=== PATIENT | male | born 1945 | race Caucasian/White ===

== ENCOUNTER 2020-12-28 10:01 | Emergency (ER) | payer MEDICARE, SELFPAY ==
--- NOTE | 2020-12-28 10:07 | ED.EYEPROB ---
HPI - Eye Problem General Chief complaint: Eye Problems Stated complaint: EYE REDNESS Time Seen by Provider: 12/28/20 10:10 Source: patient, RN notes reviewed and old records reviewed Mode of arrival: ambulatory Limitations: no limitations History of Present Illness HPI Narrative: 75-year-old male who presents to [facility] with complaints of eye redness and some swelling of bilateral eyes for the past 24 hours. Patient states that his eyes were matted shut this morning and he has had a lot of clear tearing from eyes. Patient denies any pain or itching to his eyes or any changes in his vision. Patient reports that he has used some OTC eye drops for pink eye last night and this morning. Patient has noted swelling to bilateral eyes especially upper eyelids, denies any foreign body to eyes has history of some seasonal allergies. MD chief complaint: eye redness Onset (ago): day(s) (1) Onset description: sudden Related Data Allergies Allergy/AdvReac Type Severity Reaction Status Date / Time No Known Allergies Allergy Verified 12/28/20 10:09 Review of Systems Review of Systems: CONSTITUTIONAL: Denies fever, chills, or sweats. EYES: Denies visual changes, positive redness,swelling of eyes and clear tearing from eyes ENT: Denies rhinorrhea, congestion, sore throat, or otalgia. CARDIOVASCULAR: Denies chest pain, palpitations, or edema. RESPIRATORY: Denies cough or dyspnea. GASTROINTESTINAL: Denies abdominal pain, nausea, vomiting, or diarrhea. GENITOURINARY: Denies dysuria or hematuria. SKIN: Denies rash or itching. MUSCULOSKELETAL: Denies back pain, joint pain, or myalgia. NEUROLOGIC: Denies headache, numbness, or weakness. PSYCHIATRIC: Denies anxiety or depression. All systems reviewed & are unremarkable except as noted in HPI and below PMFSH Past Medical History Medical History (Updated 12/28/20 @ 10:32 by Rianna Zacarias NP) Seasonal allergies Surgical History Surgical History (Updated 12/28/20 @ 10:30 by Rianna Zacarias NP) H/O arthroscopic knee surgery History of tonsillectomy Hx of blepharoplasty bilateral eyes Family History Family History (Updated 12/28/20 @ 10:30 by Rianna Zacarias NP) Father Cerebrovascular accident Hypertension Social History Social History (Updated 12/28/20 @ 10:30 by Rianna Zacarias NP) Smoking status: Never smoker Alcohol intake: current Alcohol use details: social Substance use: never Living arrangements: with family Occupation/Education: retired Gender identity (if verbalized by the patient): Male Comments At time of signature, agree with nursing past medical, surgical, social and family history. There is no relevant family history pertinent to the presenting complaint Exam Narrative: GENERAL: Well-appearing, well-nourished, and in no acute distress. HEAD: Normocephalic, atraumatic. EYES: PERRLA and EOMI.bilateral sclera and conjunctiva redness with swelling of eyelids and clear drainage from eyes, no itching, Patient denies any visual changes or any sharp pain to eyes. Visual acuity Right 20/50, Left 20/40 with glasses. ENT: Nares clear, no rhinorrhea or epistaxis. Mucous membranes moist.TM's normal with good light reflex, throat pink with no redness, no exudates,lesions, or swelling no tonsils present. NECK: Supple. no lymphadenopathy CHEST: Clear to auscultation. No respiratory distress.SAO2 97% on room air HEART: Regular rate and rhythm. No murmur heard. Normal peripheral pulses. ABDOMEN: Soft, nontender, nondistended, normal active bowel sounds. EXTREMITIES: Normal range of motion. No edema. SKIN: Warm, dry, no rash. NEURO: No focal deficits. Alert and oriented x3. Course Vital Signs Vital signs: Vital Signs Temperature 36.8 C 12/28/20 10:09 Pulse Rate 78 12/28/20 10:09 Respiratory Rate 16 12/28/20 10:09 Blood Pressure 143/79 H 12/28/20 10:09 Pulse Oximetry 97 12/28/20 10:09 Temperature 36.8 C 12/28/20 10:09 Puls
[2020-12-28 10:09] VITALS: BP 143/79; PULSE 78; RESP 16; TEMP 36.8; O2SAT 97
== END 2020-12-28 10:42 | disposition home or self-care (01) ==
PROVIDERS: Emergency Provider Registered Nurse
DX: H10.9 Unspecified conjunctivitis (principal)
CPT/HCPCS: 99213; G0463